=== PATIENT | male | born 1985 | race Caucasian/White ===

== ENCOUNTER 2017-09-07 14:13 | Emergency (ER) | payer OTHER ==
--- NOTE | 2017-09-07 14:22 | EDM.PDOC ---
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 States the pain came on rather suddenly while he was driving the ambulance at about 1110 hrs. this morning. Pain is been very persistent since that time but does tend to wax and wane in intensity. States sometimes it'll be as high as a 6 and then occasionally be down to a 2. It is made worse by deep breathing. Denies cough or sputum production denies fever or chills. Chest wall trauma. He said no recent upper respiratory tract infections. No previous similar problems. He had [facility] which at time showed a bifid P wave suggesting right atrial hypertrophy pattern but it's only in lead 2. Onset: Today Onset Date: 09/07/17 Onset Time: 11:00 Duration: Hour(s): Location: Reports: Chest (Left precordial chest rating along the lateral chest wall into his) Quality: Reports: Ache ( lower back.), Pressure (Describes it for the most part as a pressure squeezing discomfort.), Sharp, Stabbing Severity: Moderate Improves with: Reports: Rest Worsens with: Reports: Other, Movement Context: Reports: Other (Came on while driving a motor vehicle.). Denies: Activity (Deep breathing or coughing), Exercise, Lifting, Sick Contact, Trauma Associated Symptoms: Reports: Chest Pain. Denies: Cough, cough w sputum, Diaphoresis, Fever/Chills, Headaches, Loss of Appetite, Malaise, Nausea/Vomiting , Rash, Seizure, Shortness of Breath, Syncope, Weakness Treatments CRITICAL CARE CLINICAL NURSE SPECIALIST: Reports: Other (see below) (None.) Left Chest Pain Score (Numeric/FACES): 3 Left Upper Back Pain Score (Numeric/FACES): 3 - Related Data Allergies Allergy/AdvReac Type Severity Reaction Status Date / Time codiene Allergy Hyperactivi Uncoded 09/07/17 14:19 ty Home Meds: Home Meds Cetirizine [ZyrTEC] 10 mg PO DAILY 09/07/17 [History] Diclofenac Sodium [Voltaren] 50 mg PO TID #24 tab.ec 09/07/17 [Rx] L.acidoph,Paracasei, B.lactis [Probiotic] 1 tab PO DAILY 09/07/17 [History] Multivit-Min/Iron Fum/Folic AC [Xabiw-Hllmniv-Cpsidfeq Tablet] 1 tab PO DAILY [History] oxyCODONE HCl/Acetaminophen [Percocet 5-325 mg Tablet] 1 - 2 each PO Q4H PRN # 12 tablet 09/07/17 [Rx] predniSONE [Deltasone] 20 mg PO ASDIRECTED #16 tablet 09/07/17 [Rx] Past Medical History HEENT History: Reports: Allergic Rhinitis Social & Family History - Living Situation & Occupation Living situation: Reports: Single Occupation: Employed ED ROS GENERAL - Review of Systems Review Of Systems: See Below Constitutional: Denies: Fever, Chills, Malaise, Weakness, Fatigue, Decreased Appetite, Weight Loss HEENT: Reports: No Symptoms Respiratory: Reports: Shortness of Breath, Pleuritic Chest Pain (At times pain is sharp and stabbing but other times the left precordial chest discomfort is squeezing and). Denies: Cough, Sputum, Hemoptysis Cardiovascular: Reports: Chest Pain ( sure leg.), Other (Has no history of hypertension but on arrival his BP is elevated at 160 08/09/03 indicating a degree of anxiety.). Denies: Blood Pressure Problem ( see history of present illness ), Claudication, Dyspnea on Exertion, Lightheadedness, Orthopnea, Palpitations Endocrine: Reports: No Symptoms GI/Abdominal: Reports: No Symptoms : Reports: No Symptoms Musculoskeletal: Reports: Back Pain (Left precordial chest pain that radiates along the costal margin into his mid back) Skin: Reports: No Symptoms Neurological: Reports: No Symptoms Psychiatric: Reports: No Symptoms Hematologic/Lymphatic: Reports: No Symptoms Immunologic: Reports: No Symptoms ED EXAM, GENERAL - Physical Exam Exam: See Below Exam Limited By: No Limitations General Appearance: Alert, WD/WN, Anxious, Mild Distress Eye Exam: Bilateral Eye: Normal Inspection Throat/Mouth: Normal Inspection, Normal Lips, Normal Teeth, Normal Gums Head: Atraumatic, Normocephalic Neck: Normal Inspection, Supple, Non-Tender, Full Range of Motion. No: Lymphadenopathy (L), Lymphadenopathy (R), Thyromegaly Respiratory/Chest: No Respiratory Distress, Lungs Clear, Normal Breath Sounds, No Accessory Muscle Use, Other (Patient does have some tenderness on palpation particularly ribs 2 and 3 left upper anterior chest which radiates into the axilla.) Cardiovascular: Normal Peripheral Pulses, Regular Rate, Rhythm, No Edema, No Gallop, No Murmur Peripheral Pulses: 3+: Posterior Tibial (L), Posterior Tibial (R), Dorsalis Pedis (L), Dorsalis Pedis (R) GI/Abdominal: Normal Bowel Sounds, Soft, Non-Tender, No Organomegaly, No Distention, No Abnormal Bruit, No Mass, Pelvis Stable Back Exam: Normal Inspection, Full Range of Motion, Other. No: CVA Tenderness ( L), CVA Tenderness (R) Extremities: Normal Inspection (No evidence of any rib head subluxation.), Normal Range of Motion, Non-Tender, No Pedal Edema Neurological: Alert, Oriented, CN II-XII Intact, Normal Cognition, Normal Gait Psychiatric: Normal Affect, Normal Mood, Anxious (Mild.) Skin Exam: Warm, Dry, Intact, Normal Color, No Rash EKG INTERPRETATION EKG Date: 09/07/17 Time: 14:20 Rhythm: NSR Rate (Beats/Min): 90 [place]: Normal P-Wave: Present QRS: Other (Diffuse early repolarization pattern. There is evidence of left ventricular hypertrophy pattern that may be a normal variant for his age and stature..) ST-T: Depressed (ST segment is minimally depressed in lead 2 alone. Self it doesn't mean anything.) QT: Normal EKG Interpretation Comments: Borderline ECG Course - Vital Signs Last Recorded V/S: Last Vital Signs Temp 36.9 C 09/07/17 14:21 Pulse 84 09/07/17 15:40 Resp 20 09/07/17 15:40 BP 134/87 09/07/17 15:40 Pulse Ox 94 L 09/07/17 15:40 - Orders/Labs/Meds Orders: Active Orders 24 hr Category Date Time Status EKG Documentation Completion [RC] STAT Care 09/07/17 14:22 Active Peripheral IV Care [RC] . DIRECTED Care 09/07/17 14:40 Active Ketorolac [Toradol] Med 09/07/17 14:45 Active 30 mg IVPUSH ONETIME Sodium Chloride 0.9% [Saline Flush] Med 09/07/17 14:40 Active 10 ml FLUSH ASDIRECTED PRN Peripheral IV Insertion Adult [OM.PC] Stat Oth 09/07/17 14:40 Ordered Medication Orders Ketorolac Tromethamine (Toradol) 30 mg IVPUSH ONETIME LOU Last Admin: 09/07/17 14:48 Dose: 30 mg Sodium Chloride (Saline Flush) 10 ml FLUSH ASDIRECTED PRN PRN Reason: Keep Vein Open Last Admin: 09/07/17 14:50 Dose: 10 ml Labs: Laboratory Tests 09/07/17 09/07/17 09/07/17 Range/Units 14:05 14:05 14:05 WBC 6.23 (4.23-9.07) K/mm3 RBC 5.77 (4.63-6.08) M/mm3 Hgb 16.7 (13.7-17.5) gm/L Hct 48.7 (40.1-51.0) % MCV 84.4 (79.0-92.2) fl MCH 28.9 (25.7-32.2) pg MCHC 34.3 (32.2-35.5) g/dl RDW Std Deviation 39.9 (35.1-43.9) fL Plt Count 296 (163-337) K/mm3 MPV 10.1 (9.4-12.3) fl Neutrophils % (Manual) 51 (40-60) % Band Neutrophils % 0 (0-10) % Lymphocytes % (Manual) 36 (20-40) % Atypical Lymphs % 0 % Monocytes % (Manual) 11 H (2-10) % Eosinophils % (Manual) 2 (0.8-7.0) % Basophils % (Manual) 0 L (0.2-1.2) Platelet Estimate Adequate Plt Morphology Comment Normal RBC Morph Comment Normal D-Dimer, Quantitative < 0.19 L (0.19-0.50) mg/L Sodium 139 (136-145) mEq/L Potassium 3.5 (3.5-5.1) mEq/L Chloride 104 (98-107) mEq/L Carbon Dioxide 27 (21-32) mEq/L Anion Gap 11.5 (5-15) BUN 12 (7-18) mg/dL Creatinine 1.2 (0.7-1.3) mg/dL Est Cr Clr Drug Dosing 92.98 mL/min Estimated GFR (MDRD) > 60 (>60) mL/min BUN/Creatinine Ratio 10.0 L (14-18) Glucose 107 H (74-106) mg/dL Calcium 9.3 (8.5-10.1) mg/dL Total Bilirubin 0.5 (0.2-1.0) mg/dL AST 18 (15-37) U/L ALT 41 (16-63) U/L Alkaline Phosphatase 63 (46-116) U/L CK-MB (CK-2) 0.8 (0-3.6) ng/ml Troponin I < 0.017 (0.00-0.056) ng/mL C-Reactive Protein < 0.2 (<1.0) mg/dL Total Protein 7.5 (6.4-8.2) g/dl Albumin 4.5 (3.4-5.0) g/dl Globulin 3.0 gm/dL Albumin/Globulin Ratio 1.5 (1-2) Meds: Medications Generic Name Dose Route Start Last Admin Trade Name Freq PRN Reason Stop Dose Admin Ketorolac Tromethamine 30 mg 09/07/17 14:45 09/07/17 14:48 Toradol IVPUSH 30 mg ONETIME LOU Administration Sodium Chloride 10 ml 09/07/17 14:40 09/07/17 14:50 Saline Flush FLUSH 10 ml ASDIRECTED PRN Administration Keep Vein Open - Radiology Interpretation Free Text/Narrative:: 31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 The pain has been constant since around 11:00 this morning intermittently gets worse or increases in intensity. Discussed the pain can be anywhere from a 6 to a 2. Is a strong squeezing component to the pain and occasionally a sharp stabbing component as well. Denies cough or sputum production no fever no chills. Patient reveals mild chest wall tenderness in ribs to 3 anterior left precordial chest. Lungs sound clear heart is normal. ECG shows sinus rhythm at 89/m with a left ventricular sleep pattern likely due to his thin stature and his age. Diffuse early repolarization pattern. Plan routine labs including a d- dimer and a troponin assay will be done. I strongly suspect his chest wall is the culprit for source of his pain. One view chest x-ray to be done. Since he has an IV already established and lab draw has been completed I will give him Toradol 30 mg IV to see if we can alleviate his pain. - Re-Assessments/Exams Free Text/Narrative Re-Assessment/Exam: 09/07/17 14:50 1 view chest x-ray reveals mild hyperinflated lung aden. They are otherwise clear. Cardiac silhouette is normal. There is no pneumothorax. 09/07/17 15:39 Labs are back. White count is 6.23 with 51% neutrophils and 36% lymphocytes. No bands reported. Hemoglobin is a little high at 16.7 with hematocrit of 48.7 suggesting some degree of hemoconcentration. Platelet count is 296,000. D-dimer is less than 0.19. Sodium 139 with potassium low-normal at 3.5. Chloride 14 with a bicarbonate 27. Anion gap is 11.5. BUN is 12 with a creatinine of 1.2. Glucose is 107. Calcium 9.3. Liver function normal. Troponin I is less than 0.017. C-reactive protein is less than 0.2. CK-MB is less than 0.8. 09/07/17 15:50 Patient was reexamined as he has significant pain up underneath his left scapula. I had him abstaining to assess his umbilicus umbilicus for a hernia he started to feel quite flush and faint. He was thus put back to bed. Does feel quite warm to palpation. Examination of his umbilicus suggest there is a very small supraumbilical hernia on the inner aspect of the superior aspect of the umbilicus. There is nothing incarcerated in the umbilicus at this time. Certainly not recommended for any surgery at this point time plan I'm going to place him on Voltaren 50 mg 3 times a day for the next 8 days to take pain and inflammation down. Deltasone 20 mg twice a day breakfast and supper for 5 days then once in the morning only for another 5 days again to relieve pain and inflammation. Percocet tabs 09/09/24 one or 2 every 4-6 hours for pain relief as needed when not at work and not to be used for [address] It appears to be neurogenic in origin as if he has inflammation of a costochondral nerve. Departure - Departure Time of Disposition: 15:51 Disposition: Home, Self-Care 01 Condition: Fair Clinical Impression: Acute chest wall pain, Non-cardiac chest pain Prescriptions: Diclofenac Sodium [Voltaren] 50 mg PO TID #24 tab.ec oxyCODONE HCl/Acetaminophen [Percocet 5-325 mg Tablet] 1 - 2 each PO Q4H PRN # 12 tablet PRN Reason: pain relief. predniSONE [Deltasone] 20 mg PO ASDIRECTED #16 tablet Referrals: PCP,None [Primary Care Provider] - Forms: ED Department Discharge Additional Instructions: Evaluation the emergent today in regards to the development of left anterior chest pain that radiates around the ribs into upper back under your shoulder blade. This pain is sharp and stabbing and call lancinating. It is strongly suggestive of nerve inflammation which is likely viral in origin. All of the investigations in the emergency room including chest x-ray ECG and labs were normal. There is really no evidence of any blood clots in the lung and no evidence of heart related illness. Pain is quite intense at times. Toradol did not did not seem to relieve it much at all. Therefore I would suggest starting anti-inflammatory regime with prednisone 20 mg now and then 1 tablet with breakfast and supper for 5 days then 1 tab in the morning only for another 5 days. Voltaren 50 mg now and repeat at bedtime with food. Assisted to be taken 3 times daily for the next 8 days to help reduce pain and inflammation. Said tabs 5/325 milligrams strength one or 2 tablets every 4-6 hours usually with a little food in his stomach as well for pain not relieved by the Voltaren alone. This is to be used when you're off work and not to be used for 4 hours before going to work or driving. Expect pain to settle down over the next 36 hours ago after this but be less intense or severe. I'll up if not markedly improved in 7 days time. - My Orders Last 24 Hours: My Active Orders 09/07/17 14:22 EKG Documentation Completion [RC] STAT 09/07/17 14:40 Peripheral IV Care [RC] . DIRECTED Sodium Chloride 0.9% [Saline Flush] 10 ml FLUSH ASDIRECTED PRN Peripheral IV Insertion Adult [OM.PC] Stat 09/07/17 14:45 Ketorolac [Toradol] 30 mg IVPUSH ONETIME - Assessment/Plan Last 24 Hours: My Active Orders 09/07/17 14:22 EKG Documentation Completion [RC] STAT 09/07/17 14:40 Peripheral IV Care [RC] . DIRECTED Sodium Chloride 0.9% [Saline Flush] 10 ml FLUSH ASDIRECTED PRN Peripheral IV Insertion Adult [OM.PC] Stat 09/07/17 14:45 Ketorolac [Toradol] 30 mg IVPUSH ONETIME
[2017-09-07] MEDS ORDERED: Sodium Chloride 0.9% 10 ML Syringe FLUSH PRN (14:40)
[2017-09-07] MEDS ORDERED: Ketorolac 30 MG/ML SDV IVPUSH SCH (14:45)
--- NOTE | 2017-09-07 15:28 | CR ---
Chest: Portable view of the chest was obtained. Comparison: No previous study. Heart size and mediastinum are normal. Lungs are clear. Bony structures are grossly intact. Impression: 1. Nothing acute is seen on portable chest x-ray. Diagnostic code #1
== END 2017-09-07 16:20 | disposition home or self-care (01) ==
LOC: JD.ED 14:13
DX: R07.89 Other chest pain (principal); Z88.5 Allergy status to narcotic agent
CPT/HCPCS: 36415; 71045; 80053; 82553; 84484; 85025; 85379; 86140; 93005; 96374; 99285; J1885; J7050; 93010; 99284-25

== ENCOUNTER 2024-05-17 15:35 | Emergency (ER) | payer BC ==
[2024-05-17 16:12] LABS: BASOPHILS ABSOLUTE AUTO 0.1 K/mm3 (0.0-0.2); EOSINOPHILS ABSOLUTE AUTO 0.1 K/mm3 (0.0-0.4); EOSINOPHILS PERCENT AUTO 1.7 % (0.0-6.0); HEMATOCRIT 49.1 % (42.0-52.0); HEMOGLOBIN 16.4 gm/dl (14.0-18.0); IMMATURE GRAN ABSOLUTE AUTO 0.01 K/mm3 (0.00-0.05); IMMATURE GRAN PERCENT AUTO 0.2 % (0.0-0.4); LYMPHOCYTES ABSOLUTE AUTO 2.5 K/mm3 (1.0-4.8); LYMPHOCYTES PERCENT AUTO 42.7 % (24.0-44.0); MEAN CORPUSCULAR HEMOGLOBIN 28.9 pg (28.0-32.0); MEAN CORPUSCULAR HGB CONC 33.4 g/dl (32.0-36.0); MEAN CORPUSCULAR VOLUME 86.4 fl (83.0-99.0); MEAN PLATELET VOLUME 9.3 fl (9.4-12.4); MONOCYTES ABSOLUTE AUTO 0.4 K/mm3 (0.0-0.8); MONOCYTES PERCENT AUTO 7.5 % (0.0-8.0); NEUTROPHILS ABSOLUTE AUTO 2.8 K/mm3 (1.8-7.7); NEUTROPHILS PERCENT AUTO 46.9 % (41.0-71.0); PLATELET COUNT,PLT 306 K/mm3 (150-400); RED BLOOD CELL COUNT 5.68 M/mm3 (4.52-5.90)
[2024-05-17 16:49] LABS: A/G RATIO 1.3 (1-2); ALANINE AMINOTRANSFERASE,ALT 35 U/L (16-63); ALBUMIN 4.2 g/dl (3.4-5.0); ALKALINE PHOSPHATASE 73 U/L (46-116); ANION GAP 13.2 (5-15); ASPARTATE AMNIOTRANSFERASE,AST 13 U/L (15-37); BILIRUBIN TOTAL 0.6 mg/dL (0.2-1.0); BLOOD UREA NITROGEN,BUN 10 mg/dL (7-18); BUN/CREATININE RATIO 8.3 (14-18); CARBON DIOXIDE,CO2 28 mEq/L (21-32); CHLORIDE,CL 107 mEq/L (98-107); CREATININE 1.2 mg/dL (0.7-1.3); EST CRCL DRUG DOSING (CG) 89.77 mL/min; ESTIMATED GFR 80 mL/min (>60); GLUCOSE RANDOM 111 mg/dL (70-99); POTASSIUM,K 4.2 mEq/L (3.5-5.1); PROTEIN TOTAL,TP 7.5 g/dl (6.4-8.2); SODIUM,NA 144 mEq/L (136-145)
[2024-05-17 16:51] LABS: TROPONIN I HIGH SENSITIVITY < 4 pg/mL (<=76)
[2024-05-17] MEDS: Cyclobenzaprine 10 MG Tab PO ONE (17:32)
[2024-05-17] MEDS: Ketorolac 30 MG/ML SDV IVPUSH ONE (17:33)
== END 2024-05-17 19:05 | disposition home or self-care (01) ==
LOC: JD.ED 15:35
DX: R07.89 Other chest pain (principal); Z88.5 Allergy status to narcotic agent; Z79.52 Long term (current) use of systemic steroids; Z79.899 Other long term (current) drug therapy
CPT/HCPCS: 36415; 71046; 80053; 84484; 85025; 85379; 87428; 93005; 96374; 99285; A9270; J1885; 93010; 99284